=== PATIENT | male | born 1960 | race Caucasian/White ===

== ENCOUNTER 2021-01-25 12:13 | Emergency (ER) | payer BC, OTHER ==
--- NOTE | 2021-01-25 12:36 | EDM.PDOC ---
ED HPI GENERAL MEDICAL PROBLEM - General Chief Complaint: Skin Complaint Stated Complaint: LEFT MIDDLE FINGER INFECTION Time Seen by Provider: 01/25/21 12:36 Left Finger-Middle Pain Score (Numeric/FACES): 7 - Related Data Allergies Allergy/AdvReac Type Severity Reaction Status Date / Time No Known Allergies Allergy Verified 01/25/21 12:25 Home Meds: Home Meds Doxycycline [Doxycycline Hyclate] 100 mg PO DAILY 01/25/21 [History] Levothyroxine 75 mcg PO ACBREAKFAST 01/25/21 [History] Simvastatin 10 mg PO DAILY 01/25/21 [History] Social & Family History - Tobacco Use Tobacco Use Status *Q: Never Tobacco User - Recreational Drug Use Recreational Drug Use: No ED ROS GENERAL - Review of Systems Review Of Systems: See Below Constitutional: Reports: No Symptoms HEENT: Reports: No Symptoms Respiratory: Reports: No Symptoms Cardiovascular: Reports: No Symptoms Endocrine: Reports: No Symptoms GI/Abdominal: Reports: No Symptoms : Reports: No Symptoms ED EXAM, SKIN/RASH Exam: See Below Exam Limited By: No Limitations General Appearance: Alert, No Apparent Distress Respiratory/Chest: No Respiratory Distress, Lungs Clear, Normal Breath Sounds Cardiovascular: Regular Rate, Rhythm, No Edema, No Murmur Extremities: Other (Redness and mild warmth from the distal phalanx distally nothing is felt like it could be drained, no fluctuation.) Course - Vital Signs Last Recorded V/S: Last Vital Signs Temp 36.7 C 01/25/21 12:23 Pulse 80 01/25/21 12:23 Resp 16 01/25/21 12:23 BP 125/90 01/25/21 12:23 Pulse Ox 98 01/25/21 12:23 - Orders/Labs/Meds Orders: Active Orders 24 hr Category Date Time Status Sodium Chloride 0.9% [Saline Flush] Med 01/25/21 13:32 Active 10 ml FLUSH ONETIME PRN Medication Orders Sodium Chloride (Sodium Chloride 0.9% 10 Ml Syringe) 10 ml FLUSH ONETIME PRN PRN Reason: IV FLUSH Last Admin: 01/25/21 14:08 Dose: 10 ml Documented by: Admin: 01/25/21 14:03 Dose: 10 ml Documented by: STU Labs: Laboratory Tests 06/08/21 06/08/21 Range/Units 14:13 14:13 WBC 6.62 (4.23-9.07) K/mm3 RBC 4.01 L (4.63-6.08) M/mm3 Hgb 14.0 (13.7-17.5) gm/dl Hct 40.5 (40.1-51.0) % MCV 101.0 H (79.0-92.2) fl MCH 34.9 H (25.7-32.2) pg MCHC 34.6 (32.2-35.5) g/dl RDW Std Deviation 55.3 H (35.1-43.9) fL Plt Count 250 (163-337) K/mm3 MPV 9.6 (9.4-12.3) fl Neut % (Auto) 81.3 H (34.0-67.9) % Lymph % (Auto) 8.3 L (21.8-53.1) % Anson % (Auto) 5.4 (5.3-12.2) % Eos % (Auto) 4.5 (0.8-7.0) Baso % (Auto) 0.3 (0.1-1.2) % Neut # (Auto) 5.38 (1.78-5.38) K/mm3 Lymph # (Auto) 0.55 L (1.32-3.57) K/mm3 Anson # (Auto) 0.36 (0.30-0.82) K/mm3 Eos # (Auto) 0.30 (0.04-0.54) K/mm3 Baso # (Auto) 0.02 (0.01-0.08) K/mm3 Manual Slide Review Abnormal smear Sodium 141 (136-145) mEq/L Potassium 3.9 (3.5-5.1) mEq/L Chloride 105 (98-107) mEq/L Carbon Dioxide 25 (21-32) mEq/L Anion Gap 14.9 (5-15) BUN 10 (7-18) mg/dL Creatinine 0.7 (0.7-1.3) mg/dL Est Cr Clr Drug Dosing 121.02 mL/min Estimated GFR (MDRD) > 60 (>60) mL/min BUN/Creatinine Ratio 14.3 (14-18) Glucose 91 (70-99) mg/dL Calcium 8.7 (8.5-10.1) mg/dL Total Bilirubin 0.5 (0.2-1.0) mg/dL AST 65 H (15-37) U/L ALT 39 (16-63) U/L Alkaline Phosphatase 64 (46-116) U/L Total Protein 6.5 (6.4-8.2) g/dl Albumin 3.6 (3.4-5.0) g/dl Globulin 2.9 gm/dL Albumin/Globulin Ratio 1.2 (1-2) Meds: Medications Generic Name Dose Route Start Last Admin Trade Name Freq PRN Reason Stop Dose Admin Sodium Chloride 10 ml 01/25/21 13:32 01/25/21 14:08 Sodium Chloride 0.9% 10 Ml Syringe FLUSH 10 ml ONETIME PRN Administration IV FLUSH Discontinued Medications Generic Name Dose Route Start Last Admin Trade Name Freq PRN Reason Stop Dose Admin Iopamidol 100 ml 01/25/21 13:32 01/25/21 14:08 Iopamidol 612 Mg/Ml 100 Ml Bottle IVPUSH 01/25/21 13:33 100 ml ONETIME ONE Administration - Re-Assessments/Exams Free Text/Narrative Re-Assessment/Exam: 01/25/21 15:[address] did the finger because I was concerned with his Heberden's nodes in this area being infected now for over a month of what could be going on. Radiology identified erosions within the DIP joint with mild soft tissue swelling and mild enhancement of the area compatible with an infection. His white count is not elevated. I discussed the situation with Dr. Arceo orthopedic surgeon in [place] who would like to see the patient at 9:00 tomorrow morning and will get the hand surgeons involved if needed. No change in his antibiotics at this point in case they need to I&D it and get fresh cultures. Departure - Departure Time of Disposition: 15:34 Disposition: Home, Self-Care 01 Clinical Impression: Felon of finger of left hand - Discharge Information Referrals: Sonu Olmos MD [Primary Care Provider] - Los Arceo MD [Ordering Only Provider] - Forms: ED Department Discharge Additional Instructions: Return to the emergency room with any questions problems or worsening symptoms. Your case has been reviewed with Dr. Arceo, orthopedic surgeon in [place]. He would like to see you at 9:00 in [place] time tomorrow if they need to get a hand surgeon involved they will. Nothing to eat or drink after midnight tonight Sepsis Event Note (ED) - Evaluation Sepsis Screening Result: No Definite Risk - Focused Exam Vital Signs: Vital Signs Temp Pulse Resp BP Pulse Ox 01/25/21 12:23 36.7 C 80 16 125/90 98 - My Orders Last 24 Hours: My Active Orders 01/25/21 13:32 Sodium Chloride 0.9% [Saline Flush] 10 ml FLUSH ONETIME PRN - Assessment/Plan Last 24 Hours: My Active Orders 01/25/21 13:32 Sodium Chloride 0.9% [Saline Flush] 10 ml FLUSH ONETIME PRN
[2021-01-25] MEDS ORDERED: Iopamidol 612 MG/ML 100 ML Bottle IVPUSH ONE (13:32)
[2021-01-25] MEDS: Sodium Chloride 0.9% 10 ML Syringe FLUSH PRN ×2 (14:03→14:08)
--- NOTE | 2021-01-25 14:35 | CT ---
CT left hand (with contrast) Technique: Multiple axial sections were obtained through the left hand with reconstructed coronal and sagittal images. Intravenous contrast was utilized. Findings: Sagittal images show erosions within the DIP joint involving the base of the distal phalanx and distal end of the middle phalanx. Diffuse soft tissue swelling is noted in this area with mild amount of enhancement. Findings are likely representing prominent infection. PIP and MCP joint shows nothing acute. Minimal calcification is seen within the MCP joint of the third finger which was felt to be due to old injury. Bone island noted within the trapezium. No additional osseous abnormality is appreciated within the fingers. Impression: 1. Erosions within the DIP joint of the third finger with mild soft tissue swelling and mild enhancement in this area compatible with these findings being suspicious for infection. 2. Other findings believed to be incidental as noted above. Diagnostic code #3
== END 2021-01-25 16:00 | disposition home or self-care (01) ==
LOC: JD.ED 12:13
DX: L03.012 Cellulitis of left finger (principal); Z79.899 Other long term (current) drug therapy
CPT/HCPCS: 36415; 73201; 80053; 85025; 99284; Q9967; 99283

== ENCOUNTER 2024-04-25 16:52 | Emergency (ER) | payer BC, OTHER ==
[2024-04-25] MEDS ORDERED: Sodium Chloride 0.9% 10 ML Syringe FLUSH PRN (17:53)
== END 2024-04-25 18:10 | disposition home or self-care (01) ==
LOC: JD.ED 16:52
DX: R07.89 Other chest pain (principal); E78.00 Pure hypercholesterolemia, unspecified; E03.9 Hypothyroidism, unspecified; Z79.2 Long term (current) use of antibiotics; Z79.890 Hormone replacement therapy; Z79.899 Other long term (current) drug therapy
CPT/HCPCS: 93005; 93010; 99282; 99285

== ENCOUNTER 2024-12-29 09:40 | Emergency (ER) | payer BC ==
[2024-12-29] MEDS: Dexamethasone 6 MG TABLET PO ONE (11:00)
== END 2024-12-29 12:31 | disposition home or self-care (01) ==
LOC: JD.ED 09:40
DX: R20.2 Paresthesia of skin (principal); R20.0 Anesthesia of skin; C79.9 Secondary malignant neoplasm of unspecified site; Z86.16 Personal history of COVID-19; E78.00 Pure hypercholesterolemia, unspecified; E03.9 Hypothyroidism, unspecified; Z79.899 Other long term (current) drug therapy
CPT/HCPCS: 82947; 99284; J8540; 99283

== ENCOUNTER → 2025-01-02 | Day surgery (SDC) | payer BC ==
[~2025-01-02] MED LIST: HYDROmorphone 0.5 MG/0.5 ML Syringe IVPUSH PRN; Ketamine 200 MG/20 ML MDV ONE; Midazolam 1 MG/ML 2 ML SDV ONE; Ondansetron 4 MG/2 ML SDV IVPUSH PRN; Ondansetron 4 MG/2 ML SDV ONE; Propofol 200 MG/20 ML SDV ONE; Sodium Chloride 0.9% 10 ML Syringe FLUSH PRN; Sodium Chloride 0.9% 10 ML Syringe FLUSH SCH; fentaNYL 100 MCG/2 ML SDV IVPUSH PRN; fentaNYL 100 MCG/2 ML SDV ONE
[2025-01-02] MEDS: Scopalamine 1mg/3day Transdermal Patch TOP ONE (10:24)
[2025-01-02] MEDS: Albuterol/Ipratropium 3.0-0.5 MG/3 ML Neb Soln NEB ONE (10:24)
[2025-01-02] MEDS: Lactated Ringers 1,000 ML IV SCH (10:45)
== END | disposition home or self-care (01) ==
LOC: JD.SDS 09:58
PROVIDERS: ATTEND Surgery
DX: C34.90 Malignant neoplasm of unspecified part of unspecified bronchus or lung (principal); J91.0 Malignant pleural effusion; J95.811 Postprocedural pneumothorax; E03.9 Hypothyroidism, unspecified; E78.00 Pure hypercholesterolemia, unspecified; Z79.890 Hormone replacement therapy; Z79.899 Other long term (current) drug therapy
CPT/HCPCS: 32550; 71045; A9270; J2250; J2405; J2704; J3010; J3490; J7120; J7620; 00524